=== PATIENT | female | born 1980 | race Caucasian/White ===

== ENCOUNTER 2017-03-24 08:36 | Emergency (ER) | payer OTHER ==
[2017-03-24 09:15] LABS: BASO % 0.2 % (0.1-1.2); EOS # 0.2 10_X3_uL (0.0-0.4); GRAN # 6.9 10_X3_uL (1.6-6.1); GRAN % 69.1 % (34.0-71.1); HEMATOCRIT 40.5 % (34-45); HEMOGLOBIN 13.6 g/dL (11.2-15.7); LYMPH # 2.3 10_X3_uL (1.2-3.7); LYMPH % 22.8 % (19.3-51.7); MEAN CORPUSCULAR HGB CONC 33.6 g/dL (32.0-36.0); MEAN CORPUSCULAR VOLUME 89.2 fL (79-95); MEAN PLATELET VOLUME 10.6 fl (7.5-11.5); MONO # 0.6 10_X3_uL (0.2-0.9); MONO % 5.9 % (4.7-12.5); PLATELET COUNT 198 x10_3/uL (182-369); RED BLOOD COUNT 4.54 x10_6/uL (3.9-5.2); RED CELL DISTRIBUTION WIDTH 13.5 % (11.7-14.4)
[2017-03-24 09:20] LABS: CREATININE 0.7 mg/dL (0.6-1.3); POTASSIUM 3.9 mmol/L (3.4-5.0)
[2017-03-24 09:41] LABS: ALBUMIN 4.6 gm/dL (3.4-5.0); ALKALINE PHOSPHATASE 45 U/L (50-136); ALT/SGPT 15 U/L (3.5-33.9); AMYLASE 62 U/L (15.62-74.58); AST/SGOT 16 U/L (7.04-26.96); BILIRUBIN,TOTAL 0.39 mg/dL (0.0-1.0); LIPASE 35 U/L (6.75-60.75); TOTAL PROTEIN 7.5 gm/dL (6.4-8.2)
[2017-03-24 09:45] LABS: BILIRUBIN,DIRECT < 0.20 mg/dL (0.0-0.30)
[2017-03-24 12:11] LABS: URINE BILIRUBIN NEGATIVE (NEGATIVE); URINE BLOOD 3+ (NEGATIVE); URINE GLUCOSE (UA) NORMAL (NORMAL); URINE KETONE NEGATIVE (NEGATIVE); URINE LEUKOCYTE ESTERASE TRACE (NEGATIVE); URINE NITRATE NEGATIVE (NEGATIVE); URINE PROTEIN TRACE (NEGATIVE); UROBILINOGEN NORMAL mg/dL (<1.0)
[2017-03-24 12:30] LABS: URINE BACTERIA FEW (NONE SEEN); URINE MUCUS 1+; URINE RBC 0-5 /[HPF] (0-2); URINE SQUAMOUS EPITHELIAL CELL 0-10 /[HPF] (NONE SEEN); URINE WBC 0-5 /[HPF] (0-5)
== END 2017-03-24 12:39 | disposition home or self-care (01) ==
LOC: ER 08:36
PROVIDERS: Emergency Medicine
DX: N83.202 Unspecified ovarian cyst, left side (principal); E03.9 Hypothyroidism, unspecified; Z98.51 Tubal ligation status; Z79.899 Other long term (current) drug therapy
CPT/HCPCS: 36415; 80048; 80076; 81001; 82150; 83690; 84703; 85025; 96361; 96374; 96375; 99070; 99284-25; J1170